=== PATIENT | female | born 1940 | race Two or more races ===

== ENCOUNTER 2018-03-19 08:07 | Outpatient (CLI) | payer MEDICARE, MEDICAID | END 2018-03-19 23:59 | disposition home health service (06) | LOC: WOU 08:07 | PROVIDERS: ATTEND Podiatrist Foot & Ankle Surgery | DX: I89.0 Lymphedema, not elsewhere classified (principal); L03.116 Cellulitis of left lower limb; I73.9 Peripheral vascular disease, unspecified; I87.2 Venous insufficiency (chronic) (peripheral); E11.9 Type 2 diabetes mellitus without complications; B35.1 Tinea unguium; I10 Essential (primary) hypertension; Z87.891 Personal history of nicotine dependence; E78.5 Hyperlipidemia, unspecified; Z98.49 Cataract extraction status, unspecified eye | CPT/HCPCS: G0463; Z7610 ==

== ENCOUNTER 2018-03-21 11:26 | Outpatient (CLI) | payer MEDICARE, MEDICAID | END 2018-03-21 23:59 | disposition home or self-care (01) | LOC: WOU 11:26 | PROVIDERS: ATTEND Podiatrist Foot & Ankle Surgery | DX: Z48.812 Encounter for surgical aftercare following surgery on the circulatory system (principal); I73.9 Peripheral vascular disease, unspecified; M79.89 Other specified soft tissue disorders | CPT/HCPCS: 93970-TC; Z7610 ==